=== PATIENT | female | born 1955 | race African-American/Black ===

== ENCOUNTER 2023-12-03 08:06 | Day surgery (SDC) | payer OTHER ==
[2023-11-30 13:31] VITALS: BMI 27.4
[2023-12-03 09:45] VITALS: TEMP 97
[2023-12-03 09:47] VITALS: RESP 16
[2023-12-03 09:48] VITALS: BP 128/65; PULSE 76
== END 2023-12-03 10:06 | disposition home or self-care (01) ==
LOC: FASU-ENDO 08:06
PROVIDERS: ATTEND Internal Medicine Gastroenterology
PROC: 0DJD8ZZ Inspection of Lower Intestinal Tract, Via Natural or Artificial Opening Endoscopic (ICD-10-PCS; principal; 2023-12-03 09:11)
DX: Z12.11 Encounter for screening for malignant neoplasm of colon (principal); K57.30 Diverticulosis of large intestine without perforation or abscess without bleeding